=== PATIENT | male | born 1990 | race Caucasian/White ===

== ENCOUNTER 2019-05-31 | Emergency (ER) | payer SELFPAY | END 2019-05-31 15:55 | disposition home or self-care (01) | DRG 605 | PROC: 0HQLXZZ Repair Left Lower Leg Skin, External Approach (ICD-10-PCS; principal; 2019-05-31) | DX: S81.812A Laceration without foreign body, left lower leg, initial encounter (principal); W26.0XXA Contact with knife, initial encounter; Y93.H2 Activity, gardening and landscaping; Y92.009 Unspecified place in unspecified non-institutional (private) residence as the place of occurrence of the external cause ==

== ENCOUNTER 2021-01-29 20:01 | Emergency (ER) | payer MEDICAID ==
[~2021-01-29] VITALS: Ht 170.2 cm; Wt 77.0 kg
[2021-01-29] MEDS ORDERED: TOBREX OPTH5 ML/BTL OU (21:48)
[2021-01-29 22:11] VITALS: BP 125/85
== END 2021-01-29 22:12 | disposition home or self-care (01) ==
LOC: ED 20:01
DX: S05.01XA Injury of conjunctiva and corneal abrasion without foreign body, right eye, initial encounter (principal); X58.XXXA Exposure to other specified factors, initial encounter

== ENCOUNTER 2021-03-08 12:22 | Emergency (ER) | payer MEDICAID ==
[~2021-03-08 12:22] MED LIST: TOBREX OPTH5 ML/BTL OU
== END 2021-03-08 13:08 | disposition left against medical advice (07) | DRG 951 ==
LOC: ED 12:22 → LWOBS 13:07
DX: Z53.21 Procedure and treatment not carried out due to patient leaving prior to being seen by health care provider (principal)